=== PATIENT | female | born 1990 | race Caucasian/White ===

== ENCOUNTER → 2019-02-19 | Outpatient (CLI) | payer BC ==
[2019-02-23 13:07] LABS: HPV 16 Negative (Negative); HPV 18 Negative (Negative); HPV OTHER HR TYPES Negative (Negative)
== END | disposition home or self-care (01) ==
LOC: LAB SHORT 19:17 → LAB 19:17
PROVIDERS: Obstetrics & Gynecology
DX: Z01.419 Encounter for gynecological examination (general) (routine) without abnormal findings (principal)
CPT/HCPCS: 87624; G0123

== ENCOUNTER 2020-07-04 11:25 | Day surgery (SDC) | payer BC ==
[~2020-07-04] VITALS: Ht 175.3 cm; Wt 86.5 kg
[~2020-07-04 11:25] MED LIST: VITAMINS
[2020-07-04] MEDS ORDERED: TYLENOL PM (13:14)
--- NOTE | 2020-07-04 13:26 | NUR ---
History, Chart, Medications and Allergies reviewed before start of procedure. Patient confirms NPO status and agrees with scheduled surgery. Patient States Post-Procedure ride home has been arranged with her .
--- NOTE | 2020-07-04 15:08 | NUR ---
07/04/20 1508 Kalyan Walton NO ANTIBIOTICS NEEDED
--- NOTE | 2020-07-04 16:03 | NUR ---
Dressing to procedure site clean, dry, intact with no visible drainage, swelling, erythema or bruising noted. Patient States Post-Procedure ride home has been arranged. Discharged via wheelchair to private car for ride home. ALL BELONINGS RETURNED TO PATIENT
== END 2020-07-04 22:57 | disposition home or self-care (01) ==
LOC: ORSCMMR 11:25 → ORD 12:45 → ORSCMMR 12:45
PROVIDERS: Obstetrics & Gynecology
PROC: 0UPD8HZ Removal of Contraceptive Device from Uterus and Cervix, Via Natural or Artificial Opening Endoscopic (ICD-10-PCS; principal; 2020-07-04 12:45)
DX: Z30.432 Encounter for removal of intrauterine contraceptive device (principal)
CPT/HCPCS: J1100; J1885; J2250; J2405; J2704; J3010; J7120

== ENCOUNTER 2022-03-28 11:46 | Emergency (ER) | payer BC ==
[~2022-03-28] VITALS: Ht 175.3 cm; Wt 95.2 kg
[~2022-03-28 11:46] MED LIST changes: +TYLENOL PM
[2022-03-28] MEDS ORDERED: Percocet 5-3251 EACH PO (12:47)
[2022-03-28] MEDS ORDERED: ONDA4ODT SL (12:47)
== END 2022-03-28 13:08 | disposition home or self-care (01) ==
LOC: ER 11:46
DX: H60.91 Unspecified otitis externa, right ear (principal)
CPT/HCPCS: A9270

== ENCOUNTER → 2023-06-14 | Outpatient (CLI) | payer BC ==
[~2023-06-14] MED LIST changes: +ONDA4ODT SL; +Percocet 5-3251 EACH PO
[2023-06-17 16:09] LABS: HPV 16 Negative (Negative); HPV 18 Negative (Negative); HPV OTHER HR TYPES Negative (Negative)
== END | disposition home or self-care (01) ==
LOC: LAB SHORT 16:57 → LAB 16:57
PROVIDERS: Obstetrics & Gynecology
DX: Z01.419 Encounter for gynecological examination (general) (routine) without abnormal findings (principal)
CPT/HCPCS: 87624; G0145